=== PATIENT | male | born 1950 | race Two or more races ===

== ENCOUNTER → 2020-08-18 | Outpatient (CLI) | payer OTHER ==
[2020-08-18 09:54] LABS: Urine Bacteria NONE SEEN /hpf (None Seen); Urine Blood Negative /uL (Negative); Urine WBC <1 /hpf (0 - 3)
[2020-08-18 10:36] LABS: Calcium 8.5 mg/dL (8.5-10.1); Potassium 4.3 mmol/L (3.5-5.1)
[2020-08-18 10:39] LABS: BUN/Creatinine Ratio 24.6
== END | disposition home or self-care (01) ==
LOC: LAB 09:37
DX: R94.4 Abnormal results of kidney function studies (principal); R73.03 Prediabetes
CPT/HCPCS: 36415; 80048; 81001; 83036